=== PATIENT | male | born 1945 | race Two or more races ===

== ENCOUNTER 2024-08-31 02:17 | Emergency (ER) | payer OTHER ==
[2024-08-31 02:28] VITALS: BP 119/58; O2SAT 53
[2024-08-31 02:30] LABS: HEMATOCRIT 46.7 % (41-53); HEMOGLOBIN 14.7 g/dL (13.5-17.5); MEAN CORPUSCULAR HEMOGLOBIN 33.2 pg (26.0-34.0); MEAN CORPUSCULAR HGB CONC 31.4 G/dL (31.0-37.0); MEAN CORPUSCULAR VOLUME 106 fL (80-100); PLATELET COUNT (AUTO) 123 K/uL (150-450); RED BLOOD CELL COUNT(AUTO) 4.42 MIL/uL (4.50-5.90); RED CELL DISTRIBUTION WIDTH 14.2 % (11.5-14.5); WHITE BLOOD COUNT (AUTO) 8.3 K/uL (4.5-11.0)
[2024-08-31 02:46] LABS: CALCIUM, TOTAL 8.7 mg/dL (8.8-10.5); CREATININE 1.5 mg/dL (0.60-1.30); POTASSIUM 3.8 mmol/L (3.5-5.1)
[2024-08-31 02:49] LABS: BAND NEUTROPHILS % (MANUAL) 0 % (0-5)
[2024-08-31 02:52] LABS: ALBUMIN 2.8 g/dL (3.4-5.0); BILIRUBIN,TOTAL 0.5 mg/dL (0.1-1.0); EOSINOPHILS % (MANUAL) 2 % (1-6); LYMPHOCYTES % (MANUAL) 59 % (22-44); MONOCYTES % (MANUAL) 2 % (2-9); RBC MORPHOLOGY COMMENT ABNORMAL RBC MORPH; REACTIVE LYMPHOCYTES 12 % (0-0); SEGMENTED NEUTROPHILS % 25 % (40-70); TOTAL CELLS COUNTED 100; TOTAL PROTEIN, SERUM 6.4 g/dL (6.4-8.2)
[2024-08-31] MEDS ORDERED: SODIUM BICARBONATE [ADULT] 8.4% 50 MEQ/50 ML SYRINGE IVP ONE (12:00)
[2024-08-31] MEDS ORDERED: DOPamine HCL/D5W 400 MG/250 ML IV BAG IV ONE (12:00)
[2024-08-31] MEDS ORDERED: EPINEPHrine 1:10,000 [1 MG/10 ML] SYRINGE ONE (12:00)
[2024-08-31] MEDS ORDERED: CALCIUM CHLORIDE 100 MG/ML 10 ML SYRINGE IVP ONE (12:00)
== END 2024-08-31 02:30 ==
LOC: EMS 02:17
DX: I46.9 Cardiac arrest, cause unspecified (principal); R06.02 Shortness of breath; Z86.79 Personal history of other diseases of the circulatory system
CPT/HCPCS: 99285; 92950; 80053; 85025; 36415; 93005; J1265; J0171; J3490 ×2